=== PATIENT | female | born 1985 | race Caucasian/White ===

== ENCOUNTER 2016-07-27 03:45 | Emergency (ER) | payer OTHER ==
[~2016-07-27] VITALS: Ht 165.1 cm; Wt 179.5 kg
[~2016-07-27 03:45] MED LIST: ACETAMINOPHEN-1 EAC1 PO; ALBUTEROL SULF8.5 GM IH; ALBUTEROL2.5 MG/3 M IH; AMOXICILLIN500 M1 PO; ASPIRIN EC325 MG PO; AUGMENTIN875 MG PO; BACTRIM,SEPT1 TABLET PO; BENTYL10 MG PO; BENTYL20 MG PO; Benadryl PO; CIPRO500 MG PO; COLACE50 MG PO; Cortaid,Hytone 1% Cr TP; DIOVAN HCT 11 TABLE1 PO; ENDOCET 5-3251 EACH PO; FLAGYL500 MG PO; HYCODAN SYRUP480 ML PO; HYDROCODON-ACE1 EAC7 PO; INDOCIN25 MG PO; KEFLEX500 MG PO; LEVOTHYROXINE50 MCG PO; LEVOXYL50 MCG PO; Levaquin PO; MELOXICAM7.5 MG PO; MIRALAX17 GM PO; MOBIC7.5 MG PO; MOTRIN600 MG PO; NAPROSYN500 MG PO; NAPROXEN500 MG PO; NO HOME MEDS; NOHOMEMEDS; NORCO 5/3251 TABLET PO; NORCO 7.5/321 TABLET PO; ONDANSETRON ODT4 MG PO; PERCOCET 5/31 TABLET PO; PRILOSEC40 MG PO; PROAIR HFA8.5 GM IH; PROMETHAZINE HC25 M1 PO; REGLAN10 MG PO; SYMBICORT60 INHALAT IH; SYNTHROID25 MCG PO; TRAMADOL HCL50 MG PO; TYLENOL WITH C1 EACH PO; VALSARTAN-HCTZ1 EAC1 PO; VICODIN 5-3001 EACH PO; Vicodin,Norco 5/325 PO; ZANTAC150 MG PO; ZOFRAN ODT4 MG PO; ZOFRAN4 MG PO; no home med
[2016-07-27 04:01] LABS: HEMATOCRIT 37.1 % (36.0-46.0); MCH 26.6 PG (29.0-34.0); MCHC 30.7 G/DL (30.0-36.0); MCV 86.5 FL (83-99); MEAN PLAT.VOLUME 10.1 uM^3 (9.5-12.4); PLATELET COUNT 280 K/uL (156-360); RBC DIS.WIDTH-CV 14.3 % (11.8-14.6); RED BLOOD COUNT 4.29 M/uL (3.80-5.20); WHITE BLOOD COUNT 7.2 K/uL (4.1-10.2)
[2016-07-27 04:10] LABS: CHLORIDE 108 mEq/L (99-109); POTASSIUM 4.2 mEq/L (3.7-5.4); SODIUM 140 mEq/L (136-147)
[2016-07-27 04:12] LABS: GLUCOSE 146 mg/dL (70-99)
[2016-07-27 04:14] LABS: ANION GAP 10 MEQ/L (2-14)
[2016-07-27 04:16] LABS: GFR ESTIMATE (CALCULATED) > 59 mL/min/
[2016-07-27 04:17] LABS: UREA NITROGEN (BUN) 11 mg/dL (9-23)
[2016-07-27 06:31] LABS: ADD MIUA? YES; BILIRUBIN NEGATIVE; BLOOD NEGATIVE; COLOR COLORLESS ((YELLOW)); GLUCOSE (STRIP) NEGATIVE; KETONES NEGATIVE; LEUKOCYTES TRACE; NITRITE NEGATIVE; PROTEIN (STRIP) NEGATIVE; SPECIFIC GRAVITY 1.005 (1.000-1.030); UROBILINOGEN 0.2 MG/DL (0.2-1.0)
[2016-07-27 06:33] LABS: BACTERIA RARE /HPF; EPITHELIAL CELLS 1+ /HPF; MUCUS TRACE /LPF; RED BLOOD CELLS 0-5 /HPF (0-5); UCUL ADDED? NO; WHITE BLOOD CELLS 0-5 /HPF (0-5)
[2016-07-27] MEDS ORDERED: HYCODAN SYRUP480 ML PO (06:39)
[2016-07-27 06:58] VITALS: BP 125/92
== END 2016-07-27 06:58 | disposition home or self-care (01) ==
LOC: EME 03:45
PROVIDERS: Emergency Medicine
DX: J20.8 Acute bronchitis due to other specified organisms (principal); J45.909 Unspecified asthma, uncomplicated; I10 Essential (primary) hypertension; K21.9 Gastro-esophageal reflux disease without esophagitis
CPT/HCPCS: 71020; 80048; 81003; 83605; 84702; 85027; 87040; 99281; 99284

== ENCOUNTER 2016-08-27 05:42 | Emergency (ER) | payer OTHER ==
[~2016-08-27] VITALS: Ht 165.1 cm; Wt 181.8 kg
[2016-08-27 06:20] LABS: HEMATOCRIT 35.7 % (36.0-46.0); MCH 26.8 PG (29.0-34.0); MCHC 30.8 G/DL (30.0-36.0); MCV 87.1 FL (83-99); MEAN PLAT.VOLUME 9.5 uM^3 (9.5-12.4); PLATELET COUNT 299 K/uL (156-360); RBC DIS.WIDTH-CV 14.5 % (11.8-14.6); RBC DIS.WIDTH-SD 46.2 % (39-53); WHITE BLOOD COUNT 10.4 K/uL (4.1-10.2)
[2016-08-27 06:31] LABS: CHLORIDE 106 mEq/L (99-109); POTASSIUM 4.1 mEq/L (3.7-5.4); SODIUM 140 mEq/L (136-147)
[2016-08-27 06:33] LABS: GLUCOSE 98 mg/dL (70-99)
[2016-08-27 06:34] LABS: ANION GAP 7 MEQ/L (2-14)
[2016-08-27 06:35] LABS: TOTAL BILIRUBIN 0.3 mg/dL (0.0-1.0)
[2016-08-27 06:36] LABS: ALKALINE PHOSPHATASE 52 IU/L (3-129)
[2016-08-27 06:37] LABS: GFR ESTIMATE (CALCULATED) > 59 mL/min/
[2016-08-27 06:38] LABS: UREA NITROGEN (BUN) 16 mg/dL (9-23)
[2016-08-27 06:45] LABS: QUANTITATIVE HCG < 4.0 MIU/ML
[2016-08-27 06:56] LABS: ADD MIUA? YES; BILIRUBIN NEGATIVE; BLOOD NEGATIVE; COLOR YELLOW ((YELLOW)); GLUCOSE (STRIP) NEGATIVE; KETONES NEGATIVE; LEUKOCYTES SMALL; NITRITE NEGATIVE; PROTEIN (STRIP) NEGATIVE; UROBILINOGEN 0.2 MG/DL (0.2-1.0)
[2016-08-27 07:01] LABS: BACTERIA RARE /HPF; EPITHELIAL CELLS 2+ /HPF; MUCUS TRACE /LPF; RED BLOOD CELLS 0-5 /HPF (0-5); UCUL ADDED? NO; WHITE BLOOD CELLS 0-5 /HPF (0-5)
[2016-08-27 07:40] LABS: AMPHETAMINE NEGATIVE (500 ng/mL); BARBITURATES NEGATIVE (200 ng/mL); BENZODIAZEPINES NEGATIVE (150 ng/mL); COCAINE NEGATIVE (150 ng/mL); INTERNAL CONTROLS VALID? YES; METHADONE NEGATIVE (200 ng/mL); METHAMPHETAMINE NEGATIVE (500 ng/mL); OPIATES (MORPHINE) NEGATIVE (100 ng/mL); OXYCODONE NEGATIVE (100 ng/mL); PHENCYCLIDINE NEGATIVE (25 ng/mL); PROPOXYPHENE NEGATIVE (300 ng/mL); THC CANNABINOIDS NEGATIVE (50 ng/mL); TRICYCLIC ANTIDEPRESSANTS NEGATIVE (300 ng/mL)
[2016-08-27] MEDS ORDERED: ULTRAM50 MG PO (12:06)
[2016-08-27] MEDS ORDERED: ZOFRAN4 MG PO (12:06)
[2016-08-27 12:35] VITALS: BP 126/77
== END 2016-08-27 12:35 | disposition home or self-care (01) ==
LOC: EME 05:42
DX: R10.30 Lower abdominal pain, unspecified (principal); E66.01 Morbid (severe) obesity due to excess calories; K21.9 Gastro-esophageal reflux disease without esophagitis; J45.909 Unspecified asthma, uncomplicated; I10 Essential (primary) hypertension; Z87.442 Personal history of urinary calculi; Z88.1 Allergy status to other antibiotic agents; G47.30 Sleep apnea, unspecified
CPT/HCPCS: 74177; 80053; 81003; 84702; 85027; 86140; 99281; 99285; J1885; J2405; J3010; J7030

== ENCOUNTER 2016-10-10 14:43 | Emergency (ER) | payer OTHER ==
[~2016-10-10] VITALS: Ht 165.1 cm; Wt 182.3 kg
[~2016-10-10 14:43] MED LIST changes: +ULTRAM50 MG PO
[2016-10-10 15:47] LABS: HEMATOCRIT 35.9 % (36.0-46.0); MCH 26.7 PG (29.0-34.0); MCHC 31.5 G/DL (30.0-36.0); MCV 84.9 FL (83-99); MEAN PLAT.VOLUME 10.1 uM^3 (9.5-12.4); PLATELET COUNT 290 K/uL (156-360); RBC DIS.WIDTH-CV 13.9 % (11.8-14.6); RBC DIS.WIDTH-SD 43.1 % (39-53); RED BLOOD COUNT 4.23 M/uL (3.80-5.20); WHITE BLOOD COUNT 7.9 K/uL (4.1-10.2)
[2016-10-10 16:02] LABS: CHLORIDE 105 mEq/L (99-109); POTASSIUM 4.1 mEq/L (3.7-5.4); SODIUM 140 mEq/L (136-147)
[2016-10-10 16:04] LABS: GLUCOSE 91 mg/dL (70-99)
[2016-10-10 16:05] LABS: ANION GAP 7 MEQ/L (2-14)
[2016-10-10 16:08] LABS: GFR ESTIMATE (CALCULATED) > 59 mL/min/
[2016-10-10 16:09] LABS: UREA NITROGEN (BUN) 12 mg/dL (9-23)
[2016-10-10 16:15] LABS: COLOR ORANGE ((YELLOW)); LEUKOCYTES MODERATE; SPECIFIC GRAVITY 1.021 (1.000-1.030)
[2016-10-10 16:16] LABS: BLOOD MODERATE; GLUCOSE (STRIP) NEGATIVE; KETONES NEGATIVE
[2016-10-10 16:17] LABS: QUANTITATIVE HCG < 4.0 MIU/ML
[2016-10-10 16:26] LABS: TOTAL BILIRUBIN 0.3 mg/dL (0.0-1.0)
[2016-10-10 16:27] LABS: ALKALINE PHOSPHATASE 63 IU/L (3-129)
[2016-10-10 16:29] LABS: DIRECT BILIRUBIN 0.1 mg/dL (0.0-0.3)
[2016-10-10 16:32] LABS: LIPASE 16 U/L (1.0-51.0)
[2016-10-10 16:44] LABS: ADD MIUA? YES
[2016-10-10 16:46] LABS: BACTERIA 2+ /HPF; EPITHELIAL CELLS RARE /HPF; MUCUS RARE /LPF; RED BLOOD CELLS 0-5 /HPF (0-5); UCUL ADDED? YES
[2016-10-10] MEDS ORDERED: ULTRAM50 MG PO (17:43)
[2016-10-10] MEDS ORDERED: ZOFRAN ODT4 MG PO (17:43)
[2016-10-10] MEDS ORDERED: CIPRO500 MG PO (17:43)
[2016-10-10 19:40] VITALS: BP 155/94
== END 2016-10-10 19:41 | disposition home or self-care (01) ==
LOC: EME 14:43
DX: N12 Tubulo-interstitial nephritis, not specified as acute or chronic (principal); R11.2 Nausea with vomiting, unspecified; Z87.440 Personal history of urinary (tract) infections; Z87.442 Personal history of urinary calculi; I10 Essential (primary) hypertension; K21.9 Gastro-esophageal reflux disease without esophagitis; J45.909 Unspecified asthma, uncomplicated
CPT/HCPCS: 74176; 80048; 80076; 81003; 83690; 84702; 85027; 87077; 87086; 87186; 99281; 99285; J0696; J1885; J2405; J3010; J7030; J7050

== ENCOUNTER 2016-10-18 14:47 | Emergency (ER) | payer OTHER ==
[~2016-10-18] VITALS: Ht 165.1 cm; Wt 178.9 kg
[2016-10-18 17:16] LABS: ADD MIUA? YES; BILIRUBIN NEGATIVE; BLOOD NEGATIVE; COLOR STRAW ((YELLOW)); GLUCOSE (STRIP) NEGATIVE; KETONES NEGATIVE; LEUKOCYTES TRACE; NITRITE NEGATIVE; PROTEIN (STRIP) NEGATIVE; SPECIFIC GRAVITY 1.006 (1.000-1.030); UROBILINOGEN 0.2 MG/DL (0.2-1.0)
[2016-10-18 17:21] LABS: HEMATOCRIT 38.4 % (36.0-46.0); MCH 26.8 PG (29.0-34.0); MCHC 31.3 G/DL (30.0-36.0); MCV 85.7 FL (83-99); MEAN PLAT.VOLUME 10.3 uM^3 (9.5-12.4); PLATELET COUNT 277 K/uL (156-360); RBC DIS.WIDTH-CV 14.4 % (11.8-14.6); RED BLOOD COUNT 4.48 M/uL (3.80-5.20); WHITE BLOOD COUNT 8.3 K/uL (4.1-10.2)
[2016-10-18 17:24] LABS: BACTERIA RARE /HPF; EPITHELIAL CELLS 1+ /HPF; MUCUS NONE SEEN /LPF; RED BLOOD CELLS 0-5 /HPF (0-5); UCUL ADDED? NO; WHITE BLOOD CELLS 0-5 /HPF (0-5)
[2016-10-18 17:29] LABS: CHLORIDE 104 mEq/L (99-109); POTASSIUM 4.3 mEq/L (3.7-5.4); SODIUM 136 mEq/L (136-147)
[2016-10-18 17:31] LABS: GLUCOSE 86 mg/dL (70-99)
[2016-10-18 17:32] LABS: ANION GAP 7 MEQ/L (2-14)
[2016-10-18 17:33] LABS: TOTAL BILIRUBIN 0.4 mg/dL (0.0-1.0)
[2016-10-18 17:34] LABS: ALKALINE PHOSPHATASE 70 IU/L (3-129)
[2016-10-18 17:35] LABS: GFR ESTIMATE (CALCULATED) > 59 mL/min/
[2016-10-18 17:36] LABS: UREA NITROGEN (BUN) 10 mg/dL (9-23)
[2016-10-18] MEDS ORDERED: MOTRIN800 MG PO (17:44)
[2016-10-18] MEDS ORDERED: ULTRAM50 MG PO (17:44)
[2016-10-18 18:17] VITALS: BP 130/83
== END 2016-10-18 18:18 | disposition home or self-care (01) ==
LOC: EME 14:47
PROVIDERS: Nurse Practitioner Family
DX: R10.9 Unspecified abdominal pain (principal); M54.9 Dorsalgia, unspecified; Z87.442 Personal history of urinary calculi; K21.9 Gastro-esophageal reflux disease without esophagitis; J45.909 Unspecified asthma, uncomplicated; I10 Essential (primary) hypertension; G47.30 Sleep apnea, unspecified
CPT/HCPCS: 80053; 81003; 85027; 99281; 99284; J1885; J2405

== ENCOUNTER 2017-01-11 14:43 | Emergency (ER) | payer OTHER ==
[~2017-01-11] VITALS: Ht 165.1 cm; Wt 184.3 kg
[~2017-01-11 14:43] MED LIST changes: +MOTRIN800 MG PO
[2017-01-11 15:50] LABS: HEMATOCRIT 37.3 % (36.0-46.0); MCH 26.6 PG (29.0-34.0); MCHC 30.8 G/DL (30.0-36.0); MCV 86.3 FL (83-99); MEAN PLAT.VOLUME 9.9 uM^3 (9.5-12.4); PLATELET COUNT 281 K/uL (156-360); RBC DIS.WIDTH-CV 14.2 % (11.8-14.6); RED BLOOD COUNT 4.32 M/uL (3.80-5.20); WHITE BLOOD COUNT 8.4 K/uL (4.1-10.2)
[2017-01-11 16:00] LABS: CHLORIDE 107 mEq/L (99-109); POTASSIUM 4.3 mEq/L (3.7-5.4); SODIUM 140 mEq/L (136-147)
[2017-01-11 16:02] LABS: GLUCOSE 99 mg/dL (70-99)
[2017-01-11 16:03] LABS: ANION GAP 8 MEQ/L (2-14)
[2017-01-11 16:06] LABS: GFR ESTIMATE (CALCULATED) > 59 mL/min/
[2017-01-11 16:07] LABS: UREA NITROGEN (BUN) 11 mg/dL (9-23)
[2017-01-11 16:15] LABS: QUANTITATIVE HCG < 4.0 MIU/ML
[2017-01-11 16:34] LABS: ADD MIUA? YES; BILIRUBIN NEGATIVE; BLOOD LARGE; COLOR YELLOW ((YELLOW)); GLUCOSE (STRIP) NEGATIVE; KETONES NEGATIVE; LEUKOCYTES NEGATIVE; NITRITE NEGATIVE; PROTEIN (STRIP) NEGATIVE; UROBILINOGEN 0.2 MG/DL (0.2-1.0)
[2017-01-11 16:36] LABS: BACTERIA NONE SEEN /HPF; EPITHELIAL CELLS 1+ /HPF; MUCUS NONE SEEN /LPF; RED BLOOD CELLS 0-5 /HPF (0-5); WHITE BLOOD CELLS 0-5 /HPF (0-5)
[2017-01-11 19:07] VITALS: BP 150/66
== END 2017-01-11 19:08 | disposition home or self-care (01) ==
LOC: EME 14:43
PROVIDERS: Nurse Practitioner Family
DX: N93.9 Abnormal uterine and vaginal bleeding, unspecified (principal); R10.32 Left lower quadrant pain; R10.2 Pelvic and perineal pain; Z98.890 Other specified postprocedural states; J45.909 Unspecified asthma, uncomplicated; I10 Essential (primary) hypertension; K21.9 Gastro-esophageal reflux disease without esophagitis; Z87.442 Personal history of urinary calculi; Z88.1 Allergy status to other antibiotic agents
CPT/HCPCS: 74177; 76856; 80048; 81003; 84702; 85027; 99281; 99285; J2405; J3010; J7030

== ENCOUNTER 2017-02-06 10:12 | Emergency (ER) | payer OTHER ==
[~2017-02-06] VITALS: Ht 165.1 cm; Wt 180.9 kg
[2017-02-06 10:21] VITALS: BP 108/74
[2017-02-06] MEDS ORDERED: GUAIFENESIN600 M1 PO (13:49)
[2017-02-06] MEDS ORDERED: ROBITUSSIN NIG237 ML PO (13:49)
[2017-02-06] MEDS ORDERED: TESSALON200 MG PO (13:49)
[2017-02-06] MEDS ORDERED: ZOFRAN ODT4 MG PO (13:49)
== END 2017-02-06 14:00 | disposition home or self-care (01) ==
LOC: EME 10:12
DX: J06.9 Acute upper respiratory infection, unspecified (principal); R11.10 Vomiting, unspecified; Z88.1 Allergy status to other antibiotic agents; Z88.8 Allergy status to other drugs, medicaments and biological substances
CPT/HCPCS: 71020; 99281; 99284

== ENCOUNTER 2017-04-05 15:50 | Emergency (ER) | payer OTHER ==
[~2017-04-05] VITALS: Ht 165.1 cm; Wt 175.9 kg
[~2017-04-05 15:50] MED LIST changes: +GUAIFENESIN600 M1 PO; +ROBITUSSIN NIG237 ML PO; +TESSALON200 MG PO
[2017-04-05 18:01] LABS: HEMATOCRIT 40.8 % (36.0-46.0); HEMOGLOBIN 12.8 G/DL (11.9-15.5); MCHC 31.4 G/DL (30.0-36.0); MCV 86.1 FL (83-99); PLATELET COUNT 275 K/uL (156-360); RBC DIS.WIDTH-CV 14.2 % (11.8-14.6); RBC DIS.WIDTH-SD 44.5 % (39-53); RED BLOOD COUNT 4.74 M/uL (3.80-5.20); WHITE BLOOD COUNT 5.6 K/uL (4.1-10.2)
[2017-04-05 18:14] LABS: ALBUMIN 4.2 g/dL (3.2-4.8); CHLORIDE 104 mEq/L (99-109); POTASSIUM 3.8 mEq/L (3.7-5.4); SODIUM 138 mEq/L (136-147)
[2017-04-05 18:17] LABS: GLUCOSE 98 mg/dL (70-99); TOTAL PROTEIN 7.5 g/dL (6.4-8.3)
[2017-04-05 18:19] LABS: TOTAL BILIRUBIN 0.7 mg/dL (0.0-1.0)
[2017-04-05 18:20] LABS: ALKALINE PHOSPHATASE 73 IU/L (3-129); CREATININE 0.8 mg/dL (0.6-1.3); GFR ESTIMATE (CALCULATED) > 59 mL/min/
[2017-04-05 18:21] LABS: UREA NITROGEN (BUN) 13 mg/dL (9-23)
[2017-04-05 18:22] LABS: AST (GOT) 15 IU/L (2-34)
[2017-04-05 18:23] LABS: ALT (GPT) 16 IU/L (3-49)
[2017-04-05 18:24] LABS: LIPASE 3 U/L (1.0-51.0)
[2017-04-05 18:50] LABS: APPEARANCE SL.HAZY ((CLEAR)); BILIRUBIN NEGATIVE; BLOOD NEGATIVE; COLOR YELLOW ((YELLOW)); GLUCOSE (STRIP) NEGATIVE; KETONES NEGATIVE; LEUKOCYTES TRACE; NITRITE NEGATIVE; PROTEIN (STRIP) NEGATIVE; SPECIFIC GRAVITY 1.029 (1.000-1.030); UROBILINOGEN 0.2 MG/DL (0.2-1.0)
[2017-04-05 18:58] LABS: BACTERIA RARE /HPF; EPITHELIAL CELLS 1+ /HPF; MUCUS TRACE /LPF; UCUL ADDED? NO; WHITE BLOOD CELLS 0-5 /HPF (0-5)
[2017-04-05] MEDS ORDERED: PHENERGAN12.5 MG PR (19:35)
[2017-04-05] MEDS ORDERED: ZOFRAN4 MG PO (19:35)
[2017-04-05 19:46] VITALS: BP 114/86
== END 2017-04-05 19:48 | disposition home or self-care (01) ==
LOC: EME 15:50
PROVIDERS: Physician Assistant
DX: K50.911 Crohn's disease, unspecified, with rectal bleeding (principal); I10 Essential (primary) hypertension; J45.909 Unspecified asthma, uncomplicated; G47.30 Sleep apnea, unspecified; M54.9 Dorsalgia, unspecified; K21.9 Gastro-esophageal reflux disease without esophagitis; Z87.442 Personal history of urinary calculi; Z90.49 Acquired absence of other specified parts of digestive tract; Z88.1 Allergy status to other antibiotic agents; Z88.8 Allergy status to other drugs, medicaments and biological substances
CPT/HCPCS: 80053; 81003; 83690; 85027; 99281; 99283; J2550

== ENCOUNTER 2017-06-26 22:04 | Emergency (ER) | payer OTHER ==
[~2017-06-26] VITALS: Ht 165.1 cm; Wt 178.0 kg
[~2017-06-26 22:04] MED LIST changes: +PHENERGAN12.5 MG PR
[2017-06-26 22:17] VITALS: BP 161/117
[2017-06-26 22:51] LABS: APPEARANCE SL.HAZY ((CLEAR)); BILIRUBIN NEGATIVE; BLOOD MODERATE; COLOR YELLOW ((YELLOW)); GLUCOSE (STRIP) NEGATIVE; KETONES NEGATIVE; LEUKOCYTES LARGE; NITRITE NEGATIVE; PROTEIN (STRIP) NEGATIVE; SPECIFIC GRAVITY 1.018 (1.000-1.030); UROBILINOGEN 0.2 MG/DL (0.2-1.0)
[2017-06-26 23:21] LABS: BACTERIA RARE /HPF; EPITHELIAL CELLS 1+ /HPF; MUCUS NONE SEEN /LPF; RED BLOOD CELLS 30-40 /HPF (0-5); UCUL ADDED? NO; WHITE BLOOD CELLS 0-5 /HPF (0-5)
[2017-06-27 01:29] LABS: BASOPHIL (%) 0.4 % (0-1); BASOPHIL COUNT 0.1 K/uL (0-0.1); EOSINOPHIL (%) 1.2 % (0-5); EOSINOPHIL COUNT 0.2 K/uL (0-0.3); HEMATOCRIT 39.4 % (36.0-46.0); HEMOGLOBIN 12.5 G/DL (11.9-15.5); IMMATURE GRANULOCYTE (%) 1.1 % (0.0-0.7); LYMPHOCYTE (%) 26.1 % (15-42); LYMPHOCYTE COUNT 3.9 K/uL (1.0-2.8); MCH 27.8 PG (29.0-34.0); MCHC 31.7 G/DL (30.0-36.0); MCV 87.8 FL (83-99); MONOCYTE (%) 6.8 % (3-12); NEUTROPHIL (%) 64.4 % (45-76); NEUTROPHIL COUNT 9.5 K/uL (1.8-6.4); PLATELET COUNT 336 K/uL (156-360); RBC DIS.WIDTH-CV 14.6 % (11.8-14.6); RBC DIS.WIDTH-SD 46.5 % (39-53); RED BLOOD COUNT 4.49 M/uL (3.80-5.20); WHITE BLOOD COUNT 14.8 K/uL (4.1-10.2)
[2017-06-27 01:40] LABS: CHLORIDE 104 mEq/L (99-109); POTASSIUM 4.6 mEq/L (3.7-5.4); SODIUM 141 mEq/L (136-147)
[2017-06-27 01:42] LABS: GLUCOSE 89 mg/dL (70-99)
[2017-06-27 01:44] LABS: TOTAL BILIRUBIN 0.3 mg/dL (0.0-1.0)
[2017-06-27 01:46] LABS: ALKALINE PHOSPHATASE 77 IU/L (3-129); CREATININE 0.7 mg/dL (0.6-1.3); GFR ESTIMATE (CALCULATED) > 59 mL/min/
[2017-06-27 01:47] LABS: UREA NITROGEN (BUN) 19 mg/dL (9-23)
[2017-06-27 01:48] LABS: AST (GOT) 11 IU/L (2-34)
[2017-06-27 01:49] LABS: ALT (GPT) 15 IU/L (3-49); LIPASE 14 U/L (1.0-51.0)
[2017-06-27 01:55] LABS: QUANTITATIVE HCG < 4.0 MIU/ML
[2017-06-27] MEDS ORDERED: PYRIDIUM100 MG PO (02:36)
[2017-06-27] MEDS ORDERED: KEFLEX500 MG PO (02:36)
[2017-06-27] MEDS ORDERED: CIPRO500 MG PO (02:50)
== END 2017-06-27 02:36 | disposition home or self-care (01) ==
LOC: EME 22:04
PROVIDERS: Emergency Medicine; Physician Assistant
DX: N12 Tubulo-interstitial nephritis, not specified as acute or chronic (principal); I10 Essential (primary) hypertension; J45.909 Unspecified asthma, uncomplicated; K21.9 Gastro-esophageal reflux disease without esophagitis; G47.30 Sleep apnea, unspecified; Z79.51 Long term (current) use of inhaled steroids; Z87.440 Personal history of urinary (tract) infections; Z87.442 Personal history of urinary calculi; Z90.49 Acquired absence of other specified parts of digestive tract; Z88.1 Allergy status to other antibiotic agents; Z88.8 Allergy status to other drugs, medicaments and biological substances
CPT/HCPCS: 74176; 80053; 81003; 81025; 83690; 84702; 85025; 87077; 87086; 87186; J1885